=== PATIENT | male | born 1960 | race Caucasian/White ===

== ENCOUNTER 2017-06-02 16:15 | Outpatient (CLI) | payer BC, OTHER | END 2017-06-02 16:16 | LOC: LAB.R 16:15 | PROVIDERS: ATTEND Nurse Practitioner Primary Care | DX: J18.9 Pneumonia, unspecified organism (principal); R05 Cough | CPT/HCPCS: 87275; 87276 ==

== ENCOUNTER 2017-09-16 11:25 | Outpatient (CLI) | payer OTHER ==
[2017-09-16 13:49] LABS: BASOPHILS # (AUTO) 0.1 10^3/uL (0.0-0.1); BASOPHILS % (AUTO) 1.4 %; EOSINOPHILS # (AUTO) 0.3 10^3/uL (0.0-0.7); EOSINOPHILS % (AUTO) 3.6 %; LYMPHOCYTES # (AUTO) 1.8 10^3/uL (1.5-3.5); LYMPHOCYTES % (AUTO) 23.9 %; MEAN CORPUSCULAR HEMOGLOBIN 30.5 pg (27.0-31.0); MEAN PLATELET VOLUME 7.5 fL (7.4-11.4); MONOCYTES # (AUTO) 0.6 10^3/uL (0.0-1.0); MONOCYTES % (AUTO) 7.9 %; NEUTROPHILS # (AUTO) 4.7 10^3/uL (1.5-6.6); NEUTROPHILS % (AUTO) 63.2 %; PLT - PLATELET COUNT 257 10^3/uL (130-450); RED BLOOD COUNT 5.58 10^6/uL (4.70-6.10); WHITE BLOOD COUNT 7.4 x10^3/uL (4.8-10.8)
[2017-09-16 14:06] LABS: ALBUMIN 4.2 g/dL (3.2-5.5); ALBUMIN/GLOBULIN RATIO 1.4 (1.0-2.2); ALKALINE PHOSPHATASE 47 IU/L (42-121); ALT ALANINE AMINOTRANSFERASE 24 IU/L (10-60); AST ASPARTATE AMINOTRANSFERASE 25 IU/L (10-42); BILIRUBIN,TOTAL 2.2 mg/dL (0.2-1.0); BUN - BLOOD UREA NITROGEN 19 mg/dL (6-20); CALCIUM 8.8 mg/dL (8.5-10.3); CARBON DIOXIDE - CO2 23 mmol/L (21-32); CHLORIDE 104 mmol/L (101-111); CREATININE 0.7 mg/dL (0.6-1.2); GFR - MDRD 116 (>89); GLUCOSE 110 mg/dL (70-100); SODIUM 135 mmol/L (135-145); TOTAL PROTEIN 7.3 g/dL (6.7-8.2)
[2017-09-16 14:08] LABS: CRP - C-REACTIVE PROTEIN < 1.0 mg/dL (0-1.0)
[2017-09-16 14:12] LABS: T4 (THYROXINE) 5.61 ug/dL (6.09-12.23)
[2017-09-16 14:15] LABS: THYROID STIMULATING HORMONE 1.75 uIU/mL (0.34-5.60)
[2017-09-16 14:22] LABS: TOTAL T3 1.54 ng/mL (0.87-1.78)
== END 2017-09-16 11:26 | disposition home or self-care (01) ==
LOC: LAB.R 11:25
PROVIDERS: ATTEND Nurse Practitioner Primary Care
DX: M79.1 Myalgia (principal); M25.50 Pain in unspecified joint; G89.29 Other chronic pain; R10.84 Generalized abdominal pain; G60.9 Hereditary and idiopathic neuropathy, unspecified
CPT/HCPCS: 80053; 84436; 84443; 84480; 85025; 85651; 86140

== ENCOUNTER 2017-11-14 20:36 | Emergency (ER) | END 2017-11-14 22:51 | disposition home or self-care (01) | CPT/HCPCS: 73502; 99283; A9270 ==

== ENCOUNTER 2018-12-24 11:15 | Emergency (ER) | payer OTHER ==
--- NOTE | 2018-12-24 11:56 | ED Physician Documentation ---
History of Present Illness - Stated complaint Stated Complaint: SOA/CHEST PX/FATIGUE - Chief complaint Chief Complaint: Cardiac - Additonal information Additional information: This is a 58-year-old male who denies past medical history other than a heart murmur with possible regurgitation of an unspecified valve, who presents with some worsening dyspnea on exertion, as well as now resolved chest discomfort. 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 Last night he had some aching chest discomfort over his central chest which was nonradiating and was also associated with worsening shortness of breath. This resolved, however given that his symptoms have been somewhat progressive he decided to seek care in the emergency department today. Currently is having no chest pain, at rest he does not have shortness of breath but with walking or exertion he does. He denies any history of blood clots, denies leg swelling. He is never been diagnosed with heart failure.He denies fever or cough. Review of Systems Constitutional: denies: Fever Nose: denies: Rhinorrhea / runny nose Cardiac: reports: Chest pain / pressure Respiratory: reports: Dyspnea GI: denies: Abdominal Pain, Vomiting : denies: Dysuria Skin: denies: Rash Immunocompromised: denies: Immunocompromised PD PAST MEDICAL HISTORY - Past Medical History Cardiovascular: Murmur Respiratory: None Neuro: None Endocrine/Autoimmune: None Musculoskeletal: Chronic back pain - Past Surgical History Past Surgical History: No - Present Medications Home Medications: Ambulatory Orders Medication Instructions Recorded Confirmed Codeine Sulfate 1 tab PO PRN PRN 11/14/17 11/14/17 Methocarbamol [Robaxin] 500 mg PO Q6H PRN #25 tablet 11/14/17 Tramadol HCl 50 mg PO Q6H PRN #20 tablet 11/14/17 dexAMETHasone [Decadron] 4 mg PO DAILY #5 tablet 11/14/17 - Allergies Allergies/Adverse Reactions: Allergies Allergy/AdvReac Type Severity Reaction Status Date / Time No Known Drug Allergies Allergy Verified 11/14/17 20:43 - Social History Does the pt smoke?: No Smoking Status: Never smoker Does the pt drink ETOH?: Yes Does the pt have substance abuse?: Yes - Immunizations Immunizations are current?: Yes - POLST Patient has POLST: No PD ED PE NORMAL - Vitals Vital signs reviewed: Yes - General General: Alert and oriented X 3, No acute distress - HEENT HEENT: PERRL - Neck Neck: Supple, no meningeal sign - Cardiac Cardiac: RRR, No murmur - Respiratory Respiratory: Clear bilaterally - Abdomen Abdomen: Soft, Non tender, Non distended - Derm Derm: Warm and dry - Extremities Extremities: No deformity - Neuro Neuro: Alert and oriented X 3 - Psych Psych: Normal mood, Normal affect - Free text exam Free text exam: GENERAL: Awake, alert EYES: Normal sclera HENT/Mouth: Mucus membranes are moist RESP: Lungs sound clear and equal bilaterally CV: Regular rate in 90s and rhythm on my exam; no lower extremity edema GI: Abdomen is soft, rotund, No tenderness to palpation of all quadrants NEURO: Alert, oriented x3; gross movement and sensation intact Results - Vitals Vitals: Oxygen O2 Source Room air - EKG (time done) 11:20 Other comments: Other comments (EKG, my interpretation: Time 11: 20, rate 103, rhythm sinus tachycardia. There is discordant ST depression in the lateral precordial and frontal leads. There is [address] elevation in aVR. No previous EKG for comparison. Intervals within normal limits. Intervals within normal limits) - Labs Labs: Laboratory Tests 12/24/18 12/24/18 12/24/18 11:42 11:42 11:42 WBC 9.1 RBC 5.49 Hgb 17.1 Hct 48.2 MCV 87.8 MCH 31.1 H MCHC 35.5 RDW 11.9 L Plt Count 241 MPV 9.4 Neut # (Auto) 6.3 Lymph # (Auto) 1.7 [place] # (Auto) 0.8 Eos # (Auto) 0.2 Baso # (Auto) 0.1 Absolute Nucleated RBC 0.00 Nucleated RBC % 0.0 Sodium 139 Potassium 3.8 Chloride 105 Carbon Dioxide 22 Anion Gap 12.0 BUN 15 Creatinine 0.8 Estimated GFR (MDRD) 99 Glucose 172 H Calcium 9.1 Total Bilirubin 1.4 H AST 30 ALT 38 Alkaline Phosphatase 53 Troponin I 0.04 B-Natriuretic Peptide Total Protein 6.8 Albumin 4.0 Globulin 2.8 Albumin/Globulin Ratio 1.4 Lipase 25 12/24/18 11:42 WBC RBC Hgb Hct MCV MCH MCHC RDW Plt Count MPV Neut # (Auto) Lymph # (Auto) [place] # (Auto) Eos # (Auto) Baso # (Auto) Absolute Nucleated RBC Nucleated RBC % Sodium Potassium Chloride Carbon Dioxide Anion Gap BUN Creatinine Estimated GFR (MDRD) Glucose Calcium Total Bilirubin AST ALT Alkaline Phosphatase Troponin I B-Natriuretic Peptide 167 H Total Protein Albumin Globulin Albumin/Globulin Ratio Lipase PD MEDICAL DECISION MAKING - ED course Complexity details: considered differential (ACS, pneumonia, pulmonary embolism, dysrhythmia, left ventricular hypertrophy, heart failure, pulmonary edema.) ED course: On initial examination patient is in no acute distress, vital signs are notable hypertension. EKG Shows some discordant ST depression in the lateral leads, which may be secondary to hypertrophy versus ischemia. Patient has no chest pain at this time, however his symptoms with dyspnea on exertion and intermittent chest pain are concerning for ACS. Labs are obtained and troponin is negative. Chest x-ray shows an enlarged cardiac silhouette, otherwise no acute cardiopulmonary abnormality. I discussed with patient that given his risk factors and his history, as well as his EKG changes I would like for him to be admitted for further work-up and a cardiology consult. Patient declined. I discussed with him in depth the risks of heart attack, heart failure, PE, or other missed diagnosis, or . Patient verbalizes understanding and clearly understands that by leaving he is putting himself at risk. He clearly has capacity. He states that he does not like being in hospitals And he did not want to be admitted, had rather follow-up as an outpatient. 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 I also recommended to return to the emergency department at any point for further work-up and admission to the hospital. I recommend that we release to obtain some serial EKGs and another troponin level today, he declined this and any further work-up.Patient left AGAINST MEDICAL ADVICE, again I spoke with him and he understands that I would like for him to be admitted and that he can return to the emergency department anytime Departure - Departure Disposition: ED [place] Clinical Impression: Dyspnea Qualifiers: Dyspnea type: dyspnea on exertion Qualified Code(s): R06.09 - Other forms of dyspnea Condition: Stable Follow-Up: Carlos Esparza MD [Primary Care Provider] - Tomorrow (Return to the ED at any time to complete work up and likely for admission. You need an echocardiogram and further testing.) Comments: You were seen today for shortness of breath and chest pain. I am concerned that this is related to your heart, your EKG is abnormal and your heart appears enlarged. I would like for you to be admitted to the hospital. I am concerned that this is a potentially life-threatening medical issue. Please return to the emergency department at any time for further work-up and admission. If you do n ot wish to return the emergency department, please follow-up with your primary care physician as soon as possible, you will also need to see a pretzel twisting machine operator. Discharge Date/Time: 12/24/18 14:46
[2018-12-24 12:02] LABS: BASOPHILS # (AUTO) 0.1 10^3/uL (0.0-0.1); BASOPHILS % (AUTO) 1.1 %; EOSINOPHILS # (AUTO) 0.2 10^3/uL (0.0-0.7); HGB - HEMOGLOBIN 17.1 g/dL (14.0-18.0); LYMPHOCYTES # (AUTO) 1.7 10^3/uL (1.5-3.5); LYMPHOCYTES % (AUTO) 18.4 %; MEAN CORPUSCULAR HEMOGLOBIN 31.1 pg (27.0-31.0); MEAN CORPUSCULAR HGB CONC 35.5 g/dL (32.0-36.0); MEAN CORPUSCULAR VOLUME 87.8 fL (80.0-94.0); MEAN PLATELET VOLUME 9.4 fL (7.4-11.4); MONOCYTES # (AUTO) 0.8 10^3/uL (0.0-1.0); MONOCYTES % (AUTO) 8.4 %; NEUTROPHILS # (AUTO) 6.3 10^3/uL (1.5-6.6); NEUTROPHILS % (AUTO) 69.5 %; PLT - PLATELET COUNT 241 10^3/uL (130-450); RED BLOOD COUNT 5.49 10^6/uL (4.70-6.10); RED CELL DISTRIBUTION WIDTH 11.9 % (12.0-15.0); WHITE BLOOD COUNT 9.1 x10^3/uL (4.8-10.8)
[2018-12-24 12:08] LABS: ALBUMIN/GLOBULIN RATIO 1.4 (1.0-2.2); BILIRUBIN,TOTAL 1.4 mg/dL (0.2-1.0); CALCIUM 9.1 mg/dL (8.5-10.3); CREATININE 0.8 mg/dL (0.6-1.2); TOTAL PROTEIN 6.8 g/dL (6.7-8.2)
--- NOTE | 2018-12-24 12:08 | XRAY Report ---
Reason: Chest pain Procedure Date: 12/24/2018 Accession Number: [id number] / [id number] Procedure: XR - Chest 1 View X-Ray CPT Code: 98139 FULL RESULT: EXAM: CHEST RADIOGRAPHY EXAM DATE: 12/24/2018 11:50 AM. CLINICAL HISTORY: Chest pain. COMPARISON: None. TECHNIQUE: 1 view. FINDINGS: Lungs/Pleura: No focal opacities evident. No pleural effusion. No pneumothorax. No pulmonary vascular congestion. Mediastinum: There is mild enlargement of the cardiac silhouette. Other: No acute osseous abnormality. There are degenerative changes of the right acromioclavicular joint. IMPRESSION: Mild enlargement of the cardiac silhouette. RADIA
[2018-12-24 13:40] VITALS: BP 137/107
== END 2018-12-24 14:46 | disposition left against medical advice (07) ==
LOC: ED 11:15
DX: R06.09 Other forms of dyspnea (principal); R07.89 Other chest pain; I51.7 Cardiomegaly; R94.31 Abnormal electrocardiogram [ECG] [EKG]; R00.0 Tachycardia, unspecified; Z53.20 Procedure and treatment not carried out because of patient's decision for unspecified reasons
CPT/HCPCS: 36415; 71045; 80053; 83690; 83880; 84484; 85025; 93005; 99283; 99284

== ENCOUNTER 2019-03-22 12:07 | Outpatient (CLI) | payer OTHER | END 2019-03-22 12:08 | disposition EMS.NT | LOC: EMS 12:07 | PROVIDERS: ATTEND Surgery | DX: R11.10 Vomiting, unspecified (principal) ==

== ENCOUNTER 2019-03-28 10:32 | Outpatient (CLI) | payer OTHER ==
--- NOTE | 2019-03-28 11:16 | XRAY Report ---
Reason: COUGH,NONRHEUMATIC AORTIC (VALVE) STENOSIS Procedure Date: 03/28/2019 Accession Number: [id number] / [id number] Procedure: XR - Chest 2 View X-Ray CPT Code: 47169 Final Report FULL RESULT: EXAM: CHEST RADIOGRAPHY EXAM DATE: 03/28/2019 10:54 AM. CLINICAL HISTORY: Cough, nonrheumatic aortic (valve) stenosis. COMPARISON: CHEST 1 VIEW 12/24/2018 11:37 AM. TECHNIQUE: 2 views. FINDINGS: Lungs/Pleura: There is mild bronchial wall thickening in the lower lobe distribution left greater than right, confirmed on lateral radiograph where the appearance is that of airspace opacities. No definite lobar consolidation, overt pulmonary edema, sizable pleural effusion or pneumothorax. 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 Other: None. IMPRESSION: Mild bronchial wall thickening with subtle linear opacities at the left lung base, this may represent early airspace disease. RADIA
== END 2019-03-28 10:33 | disposition home or self-care (01) ==
LOC: DI 10:32
PROVIDERS: ATTEND Nurse Practitioner
DX: R05 Cough (principal); R07.81 Pleurodynia; I35.0 Nonrheumatic aortic (valve) stenosis; Z98.890 Other specified postprocedural states
CPT/HCPCS: 71046

== ENCOUNTER 2019-08-18 15:09 | Emergency (ER) | payer MEDICAID, OTHER ==
[2019-08-18 15:18] VITALS: BP 170/94
--- NOTE | 2019-08-18 15:37 | ED Physician Documentation ---
PD HPI LOWER EXT INJURY - Stated complaint Stated Complaint: BILAT FT PX - Chief complaint Chief Complaint: Ext Problem - History obtained from History obtained from: Patient (58-year-old gentleman has had foot numbness on the lateral sides of both feet for months to years but now up burning dull pain under the fourth and fifth metatarsals on both sides especially the left for the last few months that was worse after soaking his feet today. He denies being diabetic but has been lost to primary care follow-up. He also notes a gum infection for the last several days on the lower teeth.) Review of Systems Constitutional: denies: Fever, Chills Nose: denies: Rhinorrhea / runny nose, Congestion Throat: denies: Sore throat Cardiac: denies: Chest pain / pressure, Palpitations GI: denies: Abdominal Pain (Mild numbness of both feet,), Nausea, Vomiting : denies: Dysuria, Frequency PD PAST MEDICAL HISTORY - Past Medical History Cardiovascular: Murmur Respiratory: None Neuro: None Endocrine/Autoimmune: None Musculoskeletal: Chronic back pain - Past Surgical History Past Surgical History: No Ortho: Carpal Tunnel surgery - Present Medications Home Medications: Ambulatory Orders Medication Instructions Recorded Confirmed Codeine Sulfate 1 tab PO PRN PRN 11/14/17 11/14/17 Tramadol HCl 50 mg PO Q6H PRN #20 tablet 11/14/17 dexAMETHasone [Decadron] 4 mg PO DAILY #5 tablet 11/14/17 methocarbamoL [Robaxin] 500 mg PO Q6H PRN #25 tablet 11/14/17 Amox/Clav 875/125 [Augmentin] 1 each PO Q12H #14 tablet 08/18/19 Chlorhexidine Gluconate [Peridex] 15 ml MM TID #1 bot 08/18/19 Gabapentin [Neurontin] 300 mg PO TID #60 capsule 08/18/19 - Allergies Allergies/Adverse Reactions: Allergies Allergy/AdvReac Type Severity Reaction Status Date / Time No Known Drug Allergies Allergy Verified 11/14/17 20:43 - Social History Does the pt smoke?: No Smoking Status: Never smoker Does the pt drink ETOH?: Yes Does the pt have substance abuse?: Yes - Immunizations Immunizations are current?: Yes - POLST Patient has POLST: No PD ED PE NORMAL - Vitals Vital signs reviewed: Yes - General General: Alert and oriented X 3, No acute distress - HEENT HEENT: Other (Gingivitis especially of the lower teeth on the left, he is pretty much edentulous on the right jaw.) - Neck Neck: Supple, no meningeal sign, No bony TTP - Extremities Extremities: Other (Mild numbness of both feet laterally, good pedal pulses. No evidence of infection. Normal cap refill. No tenderness. No limited range of motion.) - Neuro Neuro: Alert and oriented X 3, Normal speech Results - Vitals Vitals: Vital Signs - 24 hr 08/18/19 15:16 Temperature 36.4 C L Heart Rate 111 H Respiratory 16 Rate Blood Pressure 170/94 H O2 Saturation 97 Oxygen O2 Source Room air - Labs Labs: Laboratory Tests 08/18/19 15:35 POC Whole Bld Glucose 140 H PD MEDICAL DECISION MAKING - ED course ED course: 58-year-old gentleman with multiple complaints, a gum infection and what seems to be some neuropathy of the feet. He is started on antibiotics and gabapentin, discussed at length the importance of both PCP and dental follow-up. Departure - Departure Disposition: 01 Home, Self Care Clinical Impression: Gingivitis, Borderline diabetes, Neuropathy Condition: Good Record reviewed to determine appropriate education?: Yes Instructions: Gingivitis, ED Neuropathy Peripheral, ED Hyperglycemia New Susp Diabetes Follow-Up: Mary Viveros MD [Provider Admit Priv/Credential] - [facility] [Provider Group] Prescriptions: Amox/Clav 875/125 [Augmentin] 1 each PO Q12H #14 tablet Chlorhexidine Gluconate [Peridex] 15 ml MM TID #1 bot Gabapentin [Neurontin] 300 mg PO TID #60 capsule Comments: It is imperative to follow-up with primary care physician as well as a dentist for further evaluation and treatment. Return for new or worsening symptoms. Your blood sugar today is 140 which is not diagnostic of diabetes but is a little high and needs to be monitored by your primary care doctor. Your blood pressure was elevated today on check into the emergency department. This does not mean that you have hypertension, it is a common phenomenon to come to the emergency department and have elevated blood pressure. I recommend that you see your primary care physician within the week to have it rechecked when you are feeling better. Discharge Date/Time: 08/18/19 15:51
== END 2019-08-18 15:51 | disposition home or self-care (01) ==
LOC: ED 15:09
DX: K05.10 Chronic gingivitis, plaque induced (principal); R73.03 Prediabetes; G62.9 Polyneuropathy, unspecified
CPT/HCPCS: 99283; 99284

== ENCOUNTER 2020-03-29 08:20 | Emergency (ER) | payer MEDICAID ==
[2020-03-29 08:38] VITALS: BP 138/81
--- NOTE | 2020-03-29 08:53 | ED Physician Documentation ---
PD HPI CHEST PAIN - Stated complaint Stated Complaint: LUMPS IN CHEST, LEFT HAND PX - Chief complaint Chief Complaint: General - History obtained from History obtained from: Patient - History of Present Illness Timing - onset: How many months ago (1-2) Timing - onset during: No: Light activity Timing - duration: Weeks (1-2 weeks of worsening tenderness) Timing - details: Gradual onset, Waxing and waning (has noted some feeling of lump or firmness below both nipples that has varied in size from 1 cm up to 2-3 cm, with now several days of increased size both sides and some feeling of numbness at times in left hand. No edema in the hands. No dyspnea.) Quality: Aching, Pain Location: Other (bilateral nipples/breasts.) Improved by: Rest Worsened by: Movement, Palpation. No: Inspiration Associated symptoms: General Weakness. No: Shortness of air, Nausea, Vomiting, Feeling faint / dizzy, Palpitations, Cough Similar symptoms before: Has not had sx before Recently seen: Not recently seen Review of Systems Constitutional: reports: Other (denies any daily meds, not even OTC supplements. Denies any testosterone like supplements.). denies: Fever, Chills, Myalgias Nose: denies: Rhinorrhea / runny nose, Congestion Throat: denies: Sore throat Cardiac: reports: Chest pain / pressure. denies: Palpitations, Pedal edema, Calf pain Respiratory: reports: Dyspnea. denies: Cough GI: denies: Abdominal Pain, Nausea, Vomiting : denies: Dysuria, Frequency Skin: denies: Rash, Lesions Musculoskeletal: denies: Neck pain, Back pain Neurologic: denies: Generalized weakness, Focal weakness, Numbness Endocrine: denies: Swollen lymph nodes PD PAST MEDICAL HISTORY - Past Medical History Cardiovascular: Murmur Respiratory: None Neuro: None Endocrine/Autoimmune: None Musculoskeletal: Chronic back pain - Past Surgical History Past Surgical History: No Ortho: Carpal Tunnel surgery - Allergies Allergies/Adverse Reactions: Allergies Allergy/AdvReac Type Severity Reaction Status Date / Time No Known Drug Allergies Allergy Verified 03/29/20 08:37 - Social History Does the pt smoke?: No Smoking Status: Never smoker Does the pt drink ETOH?: Yes Does the pt have substance abuse?: Yes - Immunizations Immunizations are current?: Yes - POLST Patient has POLST: No PD ED PE NORMAL - Vitals Vital signs reviewed: Yes - General General: Alert and oriented X 3, No acute distress, Well developed/nourished - HEENT HEENT: Ears normal, Moist mucous membranes, Pharynx benign - Neck Neck: Supple, no meningeal sign, No adenopathy - Cardiac Cardiac: RRR, No murmur, No rub, Strong equal pulses - Respiratory Respiratory: No respiratory distress, Clear bilaterally, Other (both areolar area below nipples with some rounded firmness and tenderness c/w breat tissue. No skin redness nor rash. NO axillary nodes. ) - Abdomen Abdomen: Soft, Non tender Results - Vitals Vitals: Vital Signs - 24 hr 03/29/20 08:32 Temperature 36.6 C Heart Rate 102 H Respiratory 18 Rate Blood Pressure 138/81 H O2 Saturation 97 Oxygen O2 Source Room air - Labs Labs: Laboratory Tests 03/29/20 03/29/20 03/29/20 09:46 09:46 09:46 WBC 5.6 RBC 5.17 Hgb 15.7 Hct 45.6 MCV 88.2 MCH 30.4 MCHC 34.4 RDW 11.9 L Plt Count 227 MPV 8.8 Neut # (Auto) 3.5 Lymph # (Auto) 1.3 L [place] # (Auto) 0.5 Eos # (Auto) 0.3 Baso # (Auto) 0.1 Absolute Nucleated RBC 0.00 Nucleated RBC % 0.0 ESR Sodium 138 Potassium 3.5 Chloride 104 Carbon Dioxide 23 Anion Gap 11.0 BUN 15 Creatinine 1.0 Estimated GFR (MDRD) 76 L Glucose 184 H Calcium 8.5 Total Bilirubin 1.2 H AST 25 ALT 28 Alkaline Phosphatase 60 Total Protein 6.5 L Albumin 3.4 Globulin 3.1 Albumin/Globulin Ratio 1.1 TSH 1.95 Prolactin 7.60 Cortisol 6.0 03/29/20 09:46 WBC RBC Hgb Hct MCV MCH MCHC RDW Plt Count MPV Neut # (Auto) Lymph # (Auto) [place] # (Auto) Eos # (Auto) Baso # (Auto) Absolute Nucleated RBC Nucleated RBC % ESR 4 Sodium Potassium Chloride Carbon Dioxide Anion Gap BUN Creatinine Estimated GFR (MDRD) Glucose Calcium Total Bilirubin AST ALT Alkaline Phosphatase Total Protein Albumin Globulin Albumin/Globulin Ratio TSH Prolactin Cortisol PD MEDICAL DECISION MAKING - ED course Complexity details: reviewed results, re-evaluated patient, considered differential (bilateral breast tissue pain/tender. Can check hormone levels, lytes, an blood sugar. ), d/w patient Departure - Departure Disposition: 01 Home, Self Care Clinical Impression: Breast lump, Intermittent lightheadedness Condition: Stable Record reviewed to determine appropriate education?: Yes Follow-Up: [facility] [Provider Group] Comments: Your basic blood tests appear normal here. Some of the other more specific hormonal tests such as thyroid and cortisol and prolactin are yet to result and will be later today or tomorrow. These can be referenced through the patient portal and you can look up the labs. Otherwise contact your primary care for a follow-up appointment on the labs and symptoms, as they sound likely to be an endocrine/hormonal issue. With them discussed the idea of a "Holter monitor" or some version of a heart rhythm assessment over a few weeks to see if some of the lightheaded episodes correlate with abnormal rhythm. Discharge Date/Time: 03/29/20 10:42
[2020-03-29 09:53] LABS: BASOPHILS # (AUTO) 0.1 10^3/uL (0.0-0.1); BASOPHILS % (AUTO) 1.4 %; EOSINOPHILS # (AUTO) 0.3 10^3/uL (0.0-0.7); EOSINOPHILS % (AUTO) 4.6 %; HGB - HEMOGLOBIN 15.7 g/dL (14.0-18.0); LYMPHOCYTES # (AUTO) 1.3 10^3/uL (1.5-3.5); LYMPHOCYTES % (AUTO) 22.6 %; MEAN CORPUSCULAR HEMOGLOBIN 30.4 pg (27.0-31.0); MEAN CORPUSCULAR HGB CONC 34.4 g/dL (32.0-36.0); MEAN CORPUSCULAR VOLUME 88.2 fL (80.0-94.0); MEAN PLATELET VOLUME 8.8 fL (7.4-11.4); MONOCYTES # (AUTO) 0.5 10^3/uL (0.0-1.0); MONOCYTES % (AUTO) 9.4 %; NEUTROPHILS # (AUTO) 3.5 10^3/uL (1.5-6.6); NEUTROPHILS % (AUTO) 61.8 %; PLT - PLATELET COUNT 227 10^3/uL (130-450); RED BLOOD COUNT 5.17 10^6/uL (4.70-6.10); RED CELL DISTRIBUTION WIDTH 11.9 % (12.0-15.0); WHITE BLOOD COUNT 5.6 x10^3/uL (4.8-10.8)
[2020-03-29 10:04] LABS: ALBUMIN 3.4 g/dL (3.2-5.5); ALBUMIN/GLOBULIN RATIO 1.1 (1.0-2.2); BILIRUBIN,TOTAL 1.2 mg/dL (0.2-1.0); CALCIUM 8.5 mg/dL (8.5-10.3); TOTAL PROTEIN 6.5 g/dL (6.7-8.2)
[2020-03-29 10:21] LABS: THYROID STIMULATING HORMONE 1.95 uIU/mL (0.34-5.60)
[2020-03-29 10:26] LABS: PROLACTIN 7.6 ng/mL
[2020-04-03 16:31] LABS: ALBUMIN 3.5 g/dL (3.6-5.1)
== END 2020-03-29 10:42 | disposition home or self-care (01) ==
LOC: ED 08:20
DX: N63.41 Unspecified lump in right breast, subareolar (principal); N63.42 Unspecified lump in left breast, subareolar; R42 Dizziness and giddiness; I35.0 Nonrheumatic aortic (valve) stenosis
CPT/HCPCS: 36415; 80050; 82040; 82533; 84146; 84270; 84403; 85651; 93306; 99283; 99284

== ENCOUNTER 2020-03-29 10:50 | Outpatient (CLI) | payer MEDICAID | END 2020-03-29 10:51 | disposition home or self-care (01) | LOC: DI 10:50 | PROVIDERS: ATTEND Family Medicine | DX: I35.0 Nonrheumatic aortic (valve) stenosis (principal) | CPT/HCPCS: 93306 ==

== ENCOUNTER 2020-12-06 04:21 | Emergency (ER) | payer MEDICAID ==
[2020-12-06] MEDS ORDERED: KETOROLAC 15 MG/ML VIAL IVP STA (05:03)
[2020-12-06] MEDS ORDERED: ONDANSETRON 4 MG/2 ML VIAL IVP STA (05:03)
[2020-12-06] MEDS ORDERED: HYDROmorphone 1 MG/ML CARPUJECT IVP STA (05:04)
[2020-12-06] MEDS ORDERED: HYDROmorphone 1 MG/ML CARPUJECT ONE (05:12)
[2020-12-06] MEDS ORDERED: KETOROLAC 30 MG/ML VIAL ONE (05:12)
[2020-12-06] MEDS ORDERED: ONDANSETRON 4 MG/2 ML VIAL ONE (05:12)
[2020-12-06 05:22] LABS: BASOPHILS # (AUTO) 0.1 10^3/uL (0.0-0.1); BASOPHILS % (AUTO) 1.5 %; EOSINOPHILS # (AUTO) 0.2 10^3/uL (0.0-0.7); EOSINOPHILS % (AUTO) 2.5 %; HGB - HEMOGLOBIN 16.9 g/dL (14.0-18.0); LYMPHOCYTES % (AUTO) 20.5 %; MEAN CORPUSCULAR HEMOGLOBIN 30.9 pg (27.0-31.0); MEAN CORPUSCULAR HGB CONC 34.5 g/dL (32.0-36.0); MEAN CORPUSCULAR VOLUME 89.6 fL (80.0-94.0); MEAN PLATELET VOLUME 8.7 fL (7.4-11.4); MONOCYTES % (AUTO) 10.5 %; NEUTROPHILS # (AUTO) 6.1 10^3/uL (1.5-6.6); NEUTROPHILS % (AUTO) 64.6 %; PLT - PLATELET COUNT 273 10^3/uL (130-450); RED BLOOD COUNT 5.47 10^6/uL (4.70-6.10); RED CELL DISTRIBUTION WIDTH 12.4 % (12.0-15.0); WHITE BLOOD COUNT 9.5 x10^3/uL (4.8-10.8)
[2020-12-06] MEDS ORDERED: IOVERSOL 320 100 ML VIAL IVP ONE ×2 (05:23→06:07)
[2020-12-06 05:31] LABS: ALBUMIN 4.3 g/dL (3.2-5.5); ALBUMIN/GLOBULIN RATIO 1.3 (1.0-2.2); BILIRUBIN,TOTAL 2.1 mg/dL (0.2-1.0); CALCIUM 9.2 mg/dL (8.5-10.3); CREATININE 1.4 mg/dL (0.6-1.2); TOTAL PROTEIN 7.7 g/dL (6.7-8.2)
--- NOTE | 2020-12-06 06:51 | ED Physician Documentation ---
PD HPI ABD PAIN - Stated complaint Stated Complaint: LOW ABD PX - Chief complaint Chief Complaint: Abd Pain - History obtained from History obtained from: Patient - History of Present Illness Timing - onset: How many days ago (4) Timing - details: Abrupt onset, Intermittant, Waxing and waning Pain level now: 8 Quality: Pain Location: RLQ Radiation: Other (right groin) Improved by: Other (nothing) Worsened by: Other (no exacerbating factors) Associated symptoms: No: Fever, Nausea, Vomiting, Diarrhea, Constipation, Dysuria Similar symptoms before: Has not had sx before Recently seen: Not recently seen - Additional information Additional information: patient c/o episodic RLQ pain radiating to right groin, initial episode 4 days ago but resolved spontaneously. He has subsequently had episodes that have had no apparent inciting, exacerbating, or ameliorating factors with spontaneous resolution until this most recent episode which occurred several hours ago while in bed asleep; this episode is the most severe and it has not improved since onset. Review of Systems Constitutional: denies: Fever, Chills, Sweats Cardiac: reports: Reviewed and negative Respiratory: reports: Reviewed and negative GI: reports: Abdominal Pain. denies: Abdominal Swelling, Nausea, Vomiting, Constipation, Diarrhea : denies: Dysuria, Frequency, Hematuria Musculoskeletal: reports: Reviewed and negative PD PAST MEDICAL HISTORY - Past Medical History Cardiovascular: Murmur Respiratory: None Neuro: None Endocrine/Autoimmune: None Musculoskeletal: Chronic back pain - Past Surgical History Past Surgical History: No Ortho: Carpal Tunnel surgery - Present Medications Home Medications: Ambulatory Orders Medication Instructions Recorded Confirmed No Known Home Medications 12/06/20 12/06/20 - Allergies Allergies/Adverse Reactions: Allergies Allergy/AdvReac Type Severity Reaction Status Date / Time No Known Drug Allergies Allergy Verified 12/06/20 04:29 - Social History Does the pt smoke?: No Smoking Status: Never smoker Does the pt drink ETOH?: Yes Does the pt have substance abuse?: Yes - Immunizations Immunizations are current?: Yes - POLST Patient has POLST: No PD ED PE NORMAL - Vitals Vital signs reviewed: Yes - General General: Alert and oriented X 3, Well developed/nourished, Other (appears to be in painful distress) - Cardiac Cardiac: RRR, No murmur - Respiratory Respiratory: No respiratory distress, Clear bilaterally - Abdomen Abdomen: Normal bowel sounds, Soft, Non tender, Non distended - Derm Derm: Normal color, Warm and dry PD ED PE EXPANDED - Male Male : Tenderness (right testicular/hemiscrotal tenderness), Other (negative right cremasteric reflex). No: Normal lie/cremastaric Results - Vitals Vitals: Oxygen O2 Source Room air - Labs Labs: Laboratory Tests 12/06/20 12/06/20 12/06/20 04:45 04:45 04:45 WBC 9.5 RBC 5.47 Hgb 16.9 Hct 49.0 MCV 89.6 MCH 30.9 MCHC 34.5 RDW 12.4 Plt Count 273 MPV 8.7 Neut # (Auto) 6.1 Lymph # (Auto) 2.0 Nelson # (Auto) 1.0 Eos # (Auto) 0.2 Baso # (Auto) 0.1 Absolute Nucleated RBC 0.00 Nucleated RBC % 0.0 Sodium 139 Potassium 4.0 Chloride 100 L Carbon Dioxide 26 Anion Gap 13.0 BUN 31 H Creatinine 1.4 H Estimated GFR (MDRD) 52 L Glucose 165 H Calcium 9.2 Total Bilirubin 2.1 H AST 31 ALT 37 Alkaline Phosphatase 60 Total Protein 7.7 Albumin 4.3 Globulin 3.4 Albumin/Globulin Ratio 1.3 Lipase 28 Urine Color Cancelled Urine Clarity Cancelled Urine pH Cancelled Ur Specific [place] Cancelled Urine Protein Cancelled Urine Glucose (UA) Cancelled Urine Ketones Cancelled Urine Occult Blood Cancelled Urine Nitrite Cancelled Urine Bilirubin Cancelled Urine Urobilinogen Cancelled Ur Leukocyte Esterase Cancelled Ur Microscopic Review Cancelled Urine Culture Comments Cancelled - Rads (name of study) CT A/P with IV contrast Radiology: Prelim report reviewed, See rad report testicular US Radiology: Prelim report reviewed, See rad report PD MEDICAL DECISION MAKING - ED course Complexity details: reviewed results, re-evaluated patient, considered differential, d/w patient ED course: patient reported adequate pain relief after IV dilaudid. CT does not have findings that would explain his symptoms (incidental note of fatty liver, diverticulosis, renal cyst). Testicular US is interpreted by radiologist as: normal sonographic appearance of both testes. exquisitely tender cordlike structure posterior and lateral to the right testicle and extending into the inguinal canal. There is minimal blood flow within this structure. Differential possibilities include a partially torsed spermatic cord versus an incarcerated inguinal hernia." Normal color flow is noted to both testes. I discussed this case with Dr. Gallagher, electronic engineering draftsperson urology at [facility]. He opines that the presence of normal color flow to both testes suggests there is no torsion of the spermatic cord (as this would also occlude blood flow to the testicle). Dr. Gallagher recommends [facility] surgeon for this case and he opines that patient does not need to nor would benefit from transfer to urology service. D/W Dr. Alanis, accepts patient to [facility]. I then updated patient with this information and he unexpectedly and suddenly demands to be discharged. He refuses to provide me with a reason so I am unable to ascertain what concerns he has that I might try to assuage. Departure - Departure Disposition: Against Medical Advice Clinical Impression: Incarcerated hernia Condition: Stable Discharge Date/Time: 12/06/20 07:57
[2020-12-06 09:05] VITALS: BP 123/85
--- NOTE | 2020-12-06 10:45 | Ultrasound Report ---
PROCEDURE: Testicle w/Doppler INDICATIONS: RIGHT TESTICULAR PAIN TECHNIQUE: Real-time scanning was performed of the scrotum and testicles, with image documentation. Color and p ulse Doppler interrogation was performed of both testicles. COMPARISON: None. FINDINGS: Right: Testicle is normal in size at 3.6 x 2.6 x 2.8 cm, and homogenous in echotexture. Epididymis is normal in overall size and morphology. No hydrocele or varicoceles. Within the right scrotal sac, there is a cordlike structure extending to the inguinal canal and a small amount of internal blood f low. This correlates to area of point tenderness. Left: Testicle is normal in size at 4.3 x 2.2 x 2.9 cm, and homogeneous in echotexture. Epididymis is normal in overall size and morphology. No hydrocele or varicoceles. Overlying scrotal skin is no rmal in thickness. Doppler: Color and pulse Doppler demonstrate normal and symmetric arterial flow in both testicles. IMPRESSION: 1. Cordlike structure in the right testicle extending to the inguinal canal with minimal blood flow. Differential diagnosis includes partially torsed spermatic cord or incarcerated inguinal hernia. CT p albina is recommended for further evaluation. The above findings are concordant with preliminary report. Reviewed by: Tania Childress MD on 12/06/2020 10:43 AM PDT Approved by: Tania Childress MD on 12/06/2020 10:43 AM PDT Station ID: [id number]
--- NOTE | 2020-12-06 15:15 | CT Report ---
PROCEDURE: Abdomen/Pelvis W INDICATIONS: RLQ PAIN CONTRAST: IV CONTRAST: Optiray 320 ml: 100 PO CONTRAST: *NO PO CONTRAST TECHNIQUE: After the administration of oral contrast, 5 mm thick sections acquired from the diaphragms to the sy mphysis. 5 mm thick coronal and sagittal reformats were acquired. For radiation dose reduction, the following was used: automated exposure control, adjustment of mA and/or kV according to patient siz e. COMPARISON: None. FINDINGS: Image quality: Excellent. ABDOMEN: Lung bases: Lung bases are clear. Heart size is normal. Solid organs: Liver and spleen are normal in size and enhancement. Steatosis is present. Gallbladder is unremarkable Biliary system is non dilated. Pancreas enhances normally. No adrenal nodules. K idneys demonstrate normal size and enhancement, without hydronephrosis. Simple right renal cyst is p resent. Peritoneum and bowel: Bowel loops demonstrate normal wall thickness and caliber. Colonic diverticula are present without inflammatory change. No free fluid or air. Nodes and vessels: No retroperitoneal or mesenteric adenopathy by size criteria. Aorta and inferior vena cava are normal in size. Miscellaneous: No ventral hernias. PELVIS: Genitourinary: Bladder wall thickness is normal. Miscellaneous: Fat-containing inguinal hernias are noted. Bones: No suspicious bony lesions. No vertebral body compression fractures. IMPRESSION: 1. No acute intra-abdominal pelvic process. 2. Diverticulosis. The above findings are concordant with preliminary report. Reviewed by: Tania Childress MD on 12/06/2020 3:14 PM PDT Approved by: Tania Childress MD on 12/06/2020 3:14 PM PDT Station ID: [id number]
== END 2020-12-06 07:57 | disposition left against medical advice (07) ==
LOC: ED 04:21
DX: K46.0 Unspecified abdominal hernia with obstruction, without gangrene (principal)
CPT/HCPCS: 36415; 74177; 76870; 80053; 83690; 85025; 93975; 96374; 96375; 99284; J1170; Q9967; 81001; 81003; 87086

== ENCOUNTER 2021-11-19 18:13 | Emergency (ER) | payer MEDICAID ==
[2021-11-19 18:20] VITALS: BP 132/94
--- NOTE | 2021-11-19 18:44 | ED Physician Documentation ---
PD HPI HEENT - Stated complaint Stated Complaint: EAR PX - Chief complaint Chief Complaint: Heent - History obtained from History obtained from: Patient - Additional information Additional information: 1 week of left worse than right ear fullness with decreased hearing Review of Systems Constitutional: denies: Fever, Chills Nose: denies: Rhinorrhea / runny nose Throat: denies: Sore throat PD PAST MEDICAL HISTORY - Past Medical History Cardiovascular: Murmur, Valve disorder Respiratory: None Neuro: None Endocrine/Autoimmune: None GI: None : None HEENT: None Musculoskeletal: Chronic back pain Derm: None - Past Surgical History Past Surgical History: No Ortho: Carpal Tunnel surgery Cardiovascular: Valve replacement - Present Medications Home Medications: Ambulatory Orders Medication Instructions Recorded Confirmed No Known Home Medications 12/06/20 11/19/21 - Allergies Allergies/Adverse Reactions: Allergies Allergy/AdvReac Type Severity Reaction Status Date / Time No Known Drug Allergies Allergy Verified 11/19/21 18:16 - Social History Does the pt smoke?: No Smoking Status: Former smoker Does the pt drink ETOH?: Yes Does the pt have substance abuse?: Yes - Immunizations Immunizations are current?: Yes - POLST Patient has POLST: No PD ED PE NORMAL - Vitals Vital signs reviewed: Yes - General General: Alert and oriented X 3 - HEENT HEENT: Other (Bilateral cerumen impaction. After irrigation TMs were normal) - Neuro Neuro: Alert and oriented X 3, Normal speech Results - Vitals Vitals: Vital Signs - 24 hr 11/19/21 18:18 Temperature 36.8 C Heart Rate 116 H Respiratory 18 Rate Blood Pressure 132/94 H O2 Saturation 96 Oxygen O2 Source Room air Procedures - General procedure General procedure: Both ear canals cleared of cerumen with syringe irrigation and resolution of symptoms. Departure - Departure Disposition: 01 Home, Self Care Clinical Impression: Impacted cerumen of both ears Condition: Good Record reviewed to determine appropriate education?: Yes Instructions: Earwax Impacted
== END 2021-11-19 18:52 | disposition home or self-care (01) ==
LOC: ED 18:13
DX: H61.23 Impacted cerumen, bilateral (principal); Z87.891 Personal history of nicotine dependence
CPT/HCPCS: 99281; 99282

== ENCOUNTER 2021-12-05 08:19 | Emergency (ER) | payer MEDICAID ==
[2021-12-05 08:30] VITALS: BP 143/100
--- NOTE | 2021-12-05 08:45 | ED Physician Documentation ---
PD HPI HEENT - Stated complaint Stated Complaint: DOESN'T FEEL WELL - Chief complaint Chief Complaint: General - History obtained from History obtained from: Patient - History of Present Illness Timing - onset: How many months ago (2-3) Timing - duration: Months Timing - details: Gradual onset, Waxing and waning Location: Left ear, Sinuses, Other (Currently with left ear pain and left frontal and maxillary sinus pressure for several days to a week. However has had several months of general fatigue, weight loss, blurred vision and feeling "unwell".) Worsens: Position (sinuses feel worse bending over.) Associated symptoms: Congestion. No: Fever Similar symptoms before: Diagnosis (has had cerumen impaction in the past. Also some sinusitis in the past.) Recently seen: Not recently seen Review of Systems Constitutional: denies: Fever, Chills Nose: reports: Congestion, Sinus pressure / pain. denies: Rhinorrhea / runny nose Throat: denies: Sore throat Respiratory: denies: Cough GI: reports: Other (poor appetite.). denies: Abdominal Pain, Vomiting, Diarrhea : denies: Dysuria Neurologic: reports: Generalized weakness. denies: Focal weakness, Numbness, Near syncope, Altered mental status PD PAST MEDICAL HISTORY - Past Medical History Cardiovascular: Murmur, Valve disorder Respiratory: None Neuro: None Endocrine/Autoimmune: None (states history of borderline diabetes. ) GI: None : None HEENT: None Musculoskeletal: Chronic back pain Derm: None - Past Surgical History Past Surgical History: No Ortho: Carpal Tunnel surgery Cardiovascular: Valve replacement - Present Medications Home Medications: Ambulatory Orders Medication Instructions Recorded Confirmed Amoxicillin 500 mg PO TID #21 cap 12/05/21 metFORMIN [Glucophage] 500 mg PO BIDWM 30 Days #60 tablet 12/05/21 - Allergies Allergies/Adverse Reactions: Allergies Allergy/AdvReac Type Severity Reaction Status Date / Time No Known Drug Allergies Allergy Verified 11/19/21 18:16 - Social History Does the pt smoke?: No Smoking Status: Former smoker Does the pt drink ETOH?: Yes Does the pt have substance abuse?: Yes - Immunizations Immunizations are current?: Yes - POLST Patient has POLST: No PD ED PE NORMAL - Vitals Vital signs reviewed: Yes - General General: Alert and oriented X 3, Well developed/nourished - HEENT HEENT: Ears normal, Pharynx benign, Other (sinus tenderness to percussion left frontal and maxillary. ) - Neck Neck: Supple, no meningeal sign, No adenopathy - Cardiac Cardiac: RRR, No murmur - Respiratory Respiratory: Clear bilaterally - Abdomen Abdomen: Soft, Non tender - Derm Derm: Normal color, Warm and dry - Extremities Extremities: No edema, No calf tenderness / cord - Neuro Neuro: Alert and oriented X 3, No motor deficit, No sensory deficit, Normal speech Results - Vitals Vitals: Vital Signs - 24 hr 12/05/21 08:29 Temperature 37.4 C Heart Rate 117 H Respiratory 20 Rate Blood Pressure 143/100 H O2 Saturation 98 Oxygen O2 Source Room air - Labs Labs: Laboratory Tests 12/05/21 12/05/21 12/05/21 09:07 09:07 09:07 WBC 7.8 RBC 6.00 Hgb 18.2 H Hct 50.0 MCV 83.3 MCH 30.3 MCHC 36.4 H RDW 11.7 L Plt Count 245 MPV 9.3 Neut # (Auto) 5.4 Lymph # (Auto) 1.5 [place] # (Auto) 0.6 Eos # (Auto) 0.1 Baso # (Auto) 0.1 Absolute Nucleated RBC 0.00 Nucleated RBC % 0.0 VBG pH VBG pCO2 VBG pO2 VBG HCO3 VBG Total CO2 VBG O2 Saturation VBG Base Excess Sodium 129 L Potassium 4.5 Chloride 94 L Carbon Dioxide 22 Anion Gap 13.0 BUN 17 Creatinine 1.1 Estimated GFR (MDRD) 68 L Glucose 601 H* Estimat Average Glucose Hemoglobin A1c % Calcium 9.0 Magnesium 1.9 Total Bilirubin 1.6 H AST 26 ALT 40 Alkaline Phosphatase 60 C-Reactive Protein < 1.0 Total Protein 6.8 Albumin 3.7 Globulin 3.1 Albumin/Globulin Ratio 1.2 Lipase 38 TSH 2.47 Serum Ketones 12/05/21 12/05/21 12/05/21 10:08 10:08 10:08 WBC RBC Hgb Hct MCV MCH MCHC RDW Plt Count MPV Neut # (Auto) Lymph # (Auto) [place] # (Auto) Eos # (Auto) Baso # (Auto) Absolute Nucleated RBC Nucleated RBC % VBG pH 7.379 VBG pCO2 46.1 VBG pO2 21.2 L VBG HCO3 26.6 VBG Total CO2 28.0 VBG O2 Saturation 43.0 L VBG Base Excess 0.8 Sodium Potassium Chloride Carbon Dioxide Anion Gap BUN Creatinine Estimated GFR (MDRD) Glucose Estimat Average Glucose 367 H Hemoglobin A1c % 14.4 H Calcium Magnesium Total Bilirubin AST ALT Alkaline Phosphatase C-Reactive Protein Total Protein Albumin Globulin Albumin/Globulin Ratio Lipase TSH Serum Ketones NEGATIVE PD MEDICAL DECISION MAKING - ED course Complexity details: reviewed results (The patient has an elevated blood sugar at 601. We did add on ketones in the blood gas and there is no signs of acidosis nor ketosis. Appropriate for outpatient treatment and follow-up.), re-evaluated patient, considered differential (The patient with general weakness and not feeling well and stated weight loss over the last few weeks. We will check general chemistry panels etc.), d/w patient ED course: The patient was getting IV fluids to help lower sugar while we were assessing further blood test. He understood likely outpatient treatment. Apparently his mother arrived and there was some issues of their arguing and he said he had to leave right away. The nursing staff got from him that he would use the [facility] pharmacy. He was told that we would send prescriptions to the pharmacy for him for his diabetes and also apparent sinus infection will be treated with amox icillin. I had discussed this with him as the likely treatment prior to his leaving somewhat prematurely. We were not able to recheck his blood sugar prior to leaving but is stimulated is a bit lower and has been doing okay essentially with it for now. He will need to start outpatient oral treatment initially and likely will need some long-acting insulin as well but I defer to his primary care for that. Departure - Departure Disposition: ED [place] Clinical Impression: Generalized weakness, Diabetes mellitus, new onset Sinusitis Qualifiers: Sinusitis location: unspecified location Chronicity: acute Recurrence: non- recurrent Qualified Code(s): J01.90 - Acute sinusitis, unspecified Condition: Stable Record reviewed to determine appropriate education?: Yes Instructions: ED Diabetes Hypoglycemia Oral Agent Follow-Up: [facility] [Provider Group] Prescriptions: Amoxicillin 500 mg PO TID #21 cap metFORMIN [Glucophage] 500 mg PO BIDWM 30 Days #60 tablet Comments: You will want to follow up with [facility] next week for ER followup and to have sugar recheckeed. To see if meds need adjusting and possible adding of daily long acting insulin. Discharge Date/Time: 12/05/21 11:44
[2021-12-05 09:15] LABS: BASOPHILS # (AUTO) 0.1 10^3/uL (0.0-0.1); EOSINOPHILS # (AUTO) 0.1 10^3/uL (0.0-0.7); EOSINOPHILS % (AUTO) 1.3 %; HGB - HEMOGLOBIN 18.2 g/dL (14.0-18.0); LYMPHOCYTES # (AUTO) 1.5 10^3/uL (1.5-3.5); LYMPHOCYTES % (AUTO) 19.6 %; MEAN CORPUSCULAR HEMOGLOBIN 30.3 pg (27.0-31.0); MEAN CORPUSCULAR HGB CONC 36.4 g/dL (32.0-36.0); MEAN CORPUSCULAR VOLUME 83.3 fL (80.0-94.0); MEAN PLATELET VOLUME 9.3 fL (7.4-11.4); MONOCYTES # (AUTO) 0.6 10^3/uL (0.0-1.0); NEUTROPHILS # (AUTO) 5.4 10^3/uL (1.5-6.6); NEUTROPHILS % (AUTO) 69.7 %; PLT - PLATELET COUNT 245 10^3/uL (130-450); RED CELL DISTRIBUTION WIDTH 11.7 % (12.0-15.0); WHITE BLOOD COUNT 7.8 x10^3/uL (4.8-10.8)
[2021-12-05] MEDS ORDERED: AMOXICILLIN 250 MG CAPSULE PO STA (09:39)
[2021-12-05] MEDS ORDERED: ACETAMINOPHEN 325 MG TABLET PO STA (09:39)
[2021-12-05 09:55] LABS: ALBUMIN 3.7 g/dL (3.2-5.5); ALBUMIN/GLOBULIN RATIO 1.2 (1.0-2.2); ALKALINE PHOSPHATASE 60 IU/L (42-121); ALT ALANINE AMINOTRANSFERASE 40 IU/L (10-60); AST ASPARTATE AMINOTRANSFERASE 26 IU/L (10-42); BILIRUBIN,TOTAL 1.6 mg/dL (0.2-1.0); BUN - BLOOD UREA NITROGEN 17 mg/dL (6-20); CARBON DIOXIDE - CO2 22 mmol/L (21-32); CHLORIDE 94 mmol/L (101-111); CREATININE 1.1 mg/dL (0.6-1.2); GFR - MDRD 68 (>89); LIPASE 38 U/L (22-51); MAGNESIUM 1.9 mg/dL (1.7-2.8); POTASSIUM 4.5 mmol/L (3.5-5.0); SODIUM 129 mmol/L (135-145); TOTAL PROTEIN 6.8 g/dL (6.7-8.2)
[2021-12-05 09:56] LABS: CRP - C-REACTIVE PROTEIN < 1.0 mg/dL (0-1.0); GLUCOSE 601 mg/dL (70-100)
[2021-12-05] MEDS ORDERED: SODIUM CHLORIDE 0.9% 1,000 ML IV STA (09:57)
[2021-12-05 10:19] LABS: VBG BASE EXCESS 0.8 mmol/L (-2 - +2); VBG HCO3 26.6 mmol/L (23-28); VBG PCO2 46.1 mmHg (41-51); VBG PH 7.379 (7.31-7.41); VBG PO2 21.2 mmHg (25-47)
[2021-12-05 11:01] LABS: ESTIMATED AVERAGE GLUCOSE 367 mg/dL (70-100); HEMOGLOBIN A1c% 14.4 % (4.27-6.07)
[2021-12-05] MEDS ORDERED: metFORMIN 500 MG TABLET PO STA (11:24)
[2021-12-05] MEDS ORDERED: INSULIN REGULAR HUMAN 100 UNIT/1 ML 10 ML MDV IVP STA (11:24)
== END 2021-12-05 11:44 | disposition left against medical advice (07) ==
LOC: ED 08:19
DX: R53.1 Weakness (principal); J01.90 Acute sinusitis, unspecified; E11.9 Type 2 diabetes mellitus without complications; Z87.891 Personal history of nicotine dependence
CPT/HCPCS: 36415; 80053; 82009; 82803; 83036; 83690; 83735; 84443; 85025; 86140; 99283; A9270

== ENCOUNTER 2022-05-23 17:55 | Emergency (ER) | payer MEDICAID ==
[2022-05-23 18:06] VITALS: BP 140/90
--- NOTE | 2022-05-23 19:16 | ED Physician Documentation ---
PD HPI BACK PAIN - Stated complaint Stated Complaint: BACK PX - Chief complaint Chief Complaint: Back Pain - History obtained from History obtained from: Patient - Additional information Additional information: 61-year-old gentleman was working under his car about 2 weeks ago. He was down there for a long time replacing the gas tank. When he came out he had a short left shoulder, but that is progressed to back pain between the shoulder blades. It is much worse if he reaches forward or pulls back or changes position. If he is just sitting or laying straight the pain is minimal but any movement is severe. He denies shortness of breath or chest pain. Review of Systems Constitutional: denies: Fever, Chills Throat: denies: Dental pain / toothache, Sore throat Cardiac: denies: Chest pain / pressure, Palpitations Respiratory: denies: Dyspnea, Cough PD PAST MEDICAL HISTORY - Past Medical History Cardiovascular: Murmur, Valve disorder Respiratory: None Neuro: None Endocrine/Autoimmune: None (states history of borderline diabetes. ) GI: None : None HEENT: None Musculoskeletal: Chronic back pain Derm: None - Past Surgical History Past Surgical History: No Ortho: Carpal Tunnel surgery Cardiovascular: Valve replacement - Present Medications Home Medications: Ambulatory Orders Medication Instructions Recorded Confirmed Amoxicillin 500 mg PO TID #21 cap 12/05/21 metFORMIN [Glucophage] 500 mg PO BIDWM 30 Days #60 tablet 12/05/21 - Allergies Allergies/Adverse Reactions: Allergies Allergy/AdvReac Type Severity Reaction Status Date / Time No Known Drug Allergies Allergy Verified 05/23/22 18:06 - Social History Does the pt smoke?: No Smoking Status: Former smoker Does the pt drink ETOH?: Yes Does the pt have substance abuse?: Yes - Immunizations Immunizations are current?: Yes - POLST Patient has POLST: No PD ED PE NORMAL - Vitals Vital signs reviewed: Yes - General General: Alert and oriented X 3, No acute distress - HEENT HEENT: PERRL, EOMI - Neck Neck: Supple, no meningeal sign, No bony TTP - Cardiac Cardiac: RRR, No murmur - Respiratory Respiratory: No respiratory distress, Clear bilaterally - Abdomen Abdomen: Non tender - Extremities Extremities: No edema, No calf tenderness / cord - Neuro Neuro: Alert and oriented X 3, Normal speech Results - Vitals Vitals: Vital Signs - 24 hr 05/23/22 17:59 Temperature 36.2 C L Heart Rate 107 H Respiratory 20 Rate Blood Pressure 140/90 H O2 Saturation 98 Oxygen O2 Source Room air PD Medical Decision Making - ED course ED course: 61-year-old gentleman presents with back pain that is likely musculoskeletal. Given his age I recommended x-rays and we are awaiting x-rays when he left the department. Departure - Departure Disposition: ED Elope Clinical Impression: Back pain Qualifiers: Back pain location: thoracic back pain Chronicity: acute Back pain laterality: bilateral Qualified Code(s): M54.6 - Pain in thoracic spine Condition: Stable Discharge Date/Time: 05/23/22 21:08
[2022-05-23] MEDS ORDERED: CYCLOBENZAPRINE 10 MG Prepack 2 PO PRN (21:02)
== END 2022-05-23 21:08 | disposition left against medical advice (07) ==
LOC: ED 17:55
DX: M54.6 Pain in thoracic spine (principal); Z87.891 Personal history of nicotine dependence
CPT/HCPCS: 99281; 99282

== ENCOUNTER 2022-05-28 11:08 | Outpatient (CLI) | payer MEDICAID ==
--- NOTE | 2022-05-28 21:06 | XRAY Report ---
PROCEDURE: Cervical Spine 2 View INDICATIONS: PAIN IN RIGHT LOW LIMB TECHNIQUE: 2 view(s) of the cervical spine were acquired. COMPARISON: MRI cervical spine 07/29/2013, x-ray thoracic spine 05/28/2022 FINDINGS: Bones: No fractures or dislocations to the C5 level. The lateral masses of C1 appear intact on the odontoid view. No suspicious bony lesions. Significant disc space narrowing is present at C3-4 as w ell as C5-6. Bridging anterior osteophytes are present at C3-4. Multilevel uncovertebral osteophytes are present. Soft tissues: No prevertebral soft tissue swelling. IMPRESSION: Multilevel degenerative changes. Lower cervical spine is not well evaluated on current e xam. If there is area remains of concern, recommend repeat imaging. It is noted that the lower cervic al spine is poorly visualized on lateral thoracic spine x-ray. Reviewed by: Tania Childress MD on 05/28/2022 9:05 PM PST Approved by: Tania Childress MD on 05/28/2022 9:05 PM PST Station ID: [id number]
--- NOTE | 2022-05-28 21:07 | XRAY Report ---
PROCEDURE: Thoracic Spine 3 View INDICATIONS: PAIN IN RIGHT LOW LIMB TECHNIQUE: 3 views of the thoracic spine were acquired. COMPARISON: X-ray cervical spine 05/28/2022 FINDINGS: Bones: No fractures or dislocations. No suspicious bony lesions. 12 pairs of ribs are noted, and a ppear intact where visualized. Sternal wires are present. Multilevel degenerative disc space narrowi ng. Scattered areas of anterior osteophyte are present. Soft tissues: No paravertebral stripe thickening. IMPRESSION: Multilevel degenerative disc space narrowing. Reviewed by: Tania Childress MD on 05/28/2022 9:05 PM PST Approved by: Tania Childress MD on 05/28/2022 9:05 PM PST Station ID: [id number]
--- NOTE | 2022-05-28 21:07 | XRAY Report ---
PROCEDURE: Chest 1 View X-Ray INDICATIONS: PAIN IN RIGHT LOW LIMB TECHNIQUE: One view of the chest was acquired. COMPARISON: Chest x-ray 07/29/2013, 03/28/2019 FINDINGS: Surgical changes and devices: Sternal wires. Lungs and pleura: No pleural effusions or pneumothorax. Lungs are clear. Mediastinum: Mediastinal contours appear normal. Heart size is normal. Bones and chest wall: No suspicious bony lesions. Overlying soft tissues appear unremarkable. IMPRESSION: No acute pulmonary process. Reviewed by: Tania Childress MD on 05/28/2022 9:06 PM PST Approved by: Tania Childress MD on 05/28/2022 9:06 PM [facility] Station ID: [id number]
== END 2022-05-28 11:09 | disposition home or self-care (01) ==
LOC: DI 11:08
PROVIDERS: ATTEND Nurse Practitioner
DX: M47.812 Spondylosis without myelopathy or radiculopathy, cervical region (principal); M47.814 Spondylosis without myelopathy or radiculopathy, thoracic region

== ENCOUNTER 2022-09-10 07:37 | Emergency (ER) | payer MEDICAID ==
[2022-09-10 08:16] LABS: BASOPHILS # (AUTO) 0.1 10^3/uL (0.0-0.1); BASOPHILS % (AUTO) 1.6 %; EOSINOPHILS # (AUTO) 0.3 10^3/uL (0.0-0.7); EOSINOPHILS % (AUTO) 4.4 %; HGB - HEMOGLOBIN 16.4 g/dL (14.0-18.0); LYMPHOCYTES # (AUTO) 1.7 10^3/uL (1.5-3.5); LYMPHOCYTES % (AUTO) 23.8 %; MEAN CORPUSCULAR HEMOGLOBIN 30.7 pg (27.0-31.0); MEAN CORPUSCULAR HGB CONC 34.9 g/dL (32.0-36.0); MEAN PLATELET VOLUME 9.1 fL (7.4-11.4); MONOCYTES # (AUTO) 0.7 10^3/uL (0.0-1.0); MONOCYTES % (AUTO) 10.6 %; NEUTROPHILS # (AUTO) 4.1 10^3/uL (1.5-6.6); NEUTROPHILS % (AUTO) 59.5 %; PLT - PLATELET COUNT 267 10^3/uL (130-450); RED BLOOD COUNT 5.34 10^6/uL (4.70-6.10); RED CELL DISTRIBUTION WIDTH 11.9 % (12.0-15.0)
--- NOTE | 2022-09-10 08:20 | XRAY Report ---
PROCEDURE: Chest 1 View X-Ray INDICATIONS: Chest pain TECHNIQUE: One view of the chest was acquired. COMPARISON: 05/28/2022. FINDINGS: Surgical changes and devices: None. Lungs and pleura: No pleural effusions or pneumothorax. Lungs are clear. Mediastinum: Mediastinal contours appear normal. Heart size is normal. Bones and chest wall: No suspicious bony lesions. Overlying soft tissues appear unremarkable. IMPRESSION: No acute cardiopulmonary process. Reviewed by: Ben Waldron MD on 09/10/2022 8:18 AM PDT Approved by: Ben Waldron MD on 09/10/2022 8:18 AM PDT Station ID: [id number]
[2022-09-10 08:22] LABS: ALBUMIN 3.9 g/dL (3.2-5.5); ALBUMIN/GLOBULIN RATIO 1.2 (1.0-2.2); BILIRUBIN,TOTAL 1.1 mg/dL (0.2-1.0); CREATININE 0.9 mg/dL (0.6-1.2); POTASSIUM 3.8 mmol/L (3.5-5.0); TOTAL PROTEIN 7.2 g/dL (6.7-8.2)
--- NOTE | 2022-09-10 08:42 | ED Physician Documentation ---
PD HPI CHEST PAIN - Stated complaint Stated Complaint: Chest pain - Chief complaint Chief Complaint: Cardiac - History obtained from History obtained from: Patient - Additional information Additional information: The patient comes to the emergency department chief complaint of episodic chest pain. He states this started a few days ago when he was mowing the lawn. He smelled a certain plants smell that came up and it caused him to feel short of breath and have some pain in his chest. He states he has noticed this smell when he mows the lawn before, even in past years, and the smell always makes him feel short of breath. He thinks he may be allergic to what ever plant he is running over. However, he usually does not get chest pain and he noticed substernal pain/pressure at that time. The patient states that once he stopped mowing the lawn and got away from the smells, the symptoms calm down and were completely gone the next morning. The patient states that he was working in his yard over the next several days and whenever he would smell at smell, he would get the same symptoms. He did not notice the symptoms any other time. However, this morning, he woke up feeling fine was getting ready for the day when he suddenly began to have the same pain and shortness of breath. This time, there is no plant smell and just seem to come out of the blue. The patient states that he was not exerting himself at the time. The symptoms resolved on their own and he is currently asymptomatic. The patient states that outside of the plant smell, he has not noticed any chest pain or shortness of breath at any other time, including when he is exerting himself around his property. He has no known history of coronary artery disease. 4 years ago, he had an aortic valve replacement and he states at that time, he was evaluated for possible coronary artery disease and was told he was clear. He does note that all of his life, he has worked 10 to 14 hours a day, 7 days a week, and that is just what he likes to do. However, last summer he began to notice that he was becoming increasingly fatigued. He felt worse and worse until he sometimes cannot come in to work at all. He was ultimately fired from his job and he states that after that, he mostly laid in bed for 3 months. The patient states that after that, the fatigue finally began to improve and he was able to slowly get back into normal life. However, the patient states that he has never regained his prior level of energy and stamina. He states he can work about 8 hours and then he gets very tired. He has had to retire, though he does not want to. He does not currently have a primary doctor so he has been seen in various acute care settings but labs and other work-up are always negative. He does not know what is wrong with him. He does not see a independent distributor any longer. [place] to establish a relationship with any of them. The patient is a smoker. He normally does not have any shortness of breath and states that he has no history of COPD. No current complaints. No fevers or chills. No nausea or vomiting. No diaphoresis with the episodes. PD PAST MEDICAL HISTORY - Past Medical History Cardiovascular: Murmur, Valve disorder Respiratory: None Neuro: None Endocrine/Autoimmune: None (states history of borderline diabetes. ) GI: None : None HEENT: None Musculoskeletal: Chronic back pain Derm: None - Past Surgical History Past Surgical History: No Ortho: Carpal Tunnel surgery Cardiovascular: Valve replacement - Present Medications Home Medications: Ambulatory Orders Medication Instructions Recorded Confirmed Amoxicillin 500 mg PO TID #21 cap 12/05/21 metFORMIN [Glucophage] 500 mg PO BIDWM 30 Days #60 tablet 12/05/21 Amoxicillin 500 mg PO TID 7 Days #21 cap 09/10/22 Aspirin EC [Ecotrin] 325 mg PO DAILY #60 tablet 09/10/22 Atorvastatin [Lipitor] 10 mg PO DAILY #60 tablet 09/10/22 Clopidogrel [Plavix] 75 mg PO DAILY #60 tablet 09/10/22 Metoprolol Tartrate [Lopressor] 25 mg PO DAILY #60 tablet 09/10/22 - Allergies Allergies/Adverse Reactions: Allergies Allergy/AdvReac Type Severity Reaction Status Date / Time No Known Drug Allergies Allergy Verified 05/23/22 18:06 - Social History Does the pt smoke?: No Smoking Status: Former smoker Does the pt drink ETOH?: Yes Does the pt have substance abuse?: Yes - Immunizations Immunizations are current?: Yes - POLST Patient has POLST: No PD ED PE NORMAL - Vitals Vital signs reviewed: Yes - General General: Alert and oriented X 3, No acute distress, Well developed/nourished - HEENT HEENT: Atraumatic, PERRL, EOMI, Moist mucous membranes - Neck Neck: Supple, no meningeal sign - Cardiac Cardiac: RRR, No murmur, Strong equal pulses, Other ("Clicking" sound, consistent with prosthetic aortic valve.) - Respiratory Respiratory: No respiratory distress, Clear bilaterally - Abdomen Abdomen: Soft, Non tender, Non distended - Derm Derm: Normal color, Warm and dry, No rash - Extremities Extremities: No deformity, No edema - Neuro Neuro: Alert and oriented X 3, Other (Grossly intact) - Psych Psych: Normal mood, Normal affect Results - Vitals Vitals: Vital Signs - 24 hr 09/10/22 09/10/22 09/10/22 07:56 08:14 08:38 Temperature 36.7 C Heart Rate 106 H 114 H 108 H Respiratory 20 18 18 Rate Blood Pressure 123/87 H 136/84 H 133/88 H O2 Saturation 99 100 100 09/10/22 09/10/22 09:00 10:01 Temperature Heart Rate 99 87 Respiratory 25 H 16 Rate Blood Pressure 107/71 151/97 H O2 Saturation 99 100 Oxygen O2 Source Room air - EKG (time done) 0751 EKG releavant findings:: EKG personally interpreted by author of this note. Relevant findings are: Rate: Rate (enter#) (107) Rhythm: Sinus tachycardia, LAE [place]: Normal Intervals: Normal DC, RBBB (Intraventricular conduction delay) QRS: Normal Ischemia: ST depression (Inferiorly) - Labs Labs: Laboratory Tests 09/10/22 09/10/22 09/10/22 07:57 07:57 07:57 WBC 7.0 RBC 5.34 Hgb 16.4 Hct 47.0 MCV 88.0 MCH 30.7 MCHC 34.9 RDW 11.9 L Plt Count 267 MPV 9.1 Neut # (Auto) 4.1 Lymph # (Auto) 1.7 Lane # (Auto) 0.7 Eos # (Auto) 0.3 Baso # (Auto) 0.1 Absolute Nucleated RBC 0.00 Nucleated RBC % 0.0 D-Dimer Sodium 139 Potassium 3.8 Chloride 100 L Carbon Dioxide 28 Anion Gap 11.0 BUN 15 Creatinine 0.9 Estimated GFR (MDRD) 85 L Glucose 200 H Calcium 9.0 Total Bilirubin 1.1 H AST 39 ALT 32 Alkaline Phosphatase 52 Troponin I High Sens 1306.9 H* Total Protein 7.2 Albumin 3.9 Globulin 3.3 Albumin/Globulin Ratio 1.2 Lipase 34 TSH 09/10/22 09/10/22 09/10/22 07:57 07:57 09:48 WBC RBC Hgb Hct MCV MCH MCHC RDW Plt Count MPV Neut # (Auto) Lymph # (Auto) Lane # (Auto) Eos # (Auto) Baso # (Auto) Absolute Nucleated RBC Nucleated RBC % D-Dimer < 200.0 L Sodium Potassium Chloride Carbon Dioxide Anion Gap BUN Creatinine Estimated GFR (MDRD) Glucose Calcium Total Bilirubin AST ALT Alkaline Phosphatase Troponin I High Sens 1246.2 H* Total Protein Albumin Globulin Albumin/Globulin Ratio Lipase TSH 3.47 - Rads (name of study) CXR Relevant Findings:: Final report received, See rad report (No acute CPPP) PD Medical Decision Making - ED course Complexity details: reviewed old records, reviewed results, re-evaluated patient, considered differential, d/w patient ED course: The patient was without complaints and overall appeared well in the emergency department. He was mildly tachycardic which I did mention to him and he stated that this is normal for him. He takes his own vitals at home and no matter what the circumstances, he is always a little over 100. He states he has been told this by other doctors that nobody has ever been able to find anything wrong with him. He was worked up with EKG, labs, and chest x-ray. The work-up was reviewed by me, with CBC and ER abd panel unremarkable. EKG showed no STEMI and chest XR was unremarkable. Troponin was elevated at 1300. I spoke with the pt and advised him that he had had an WI, and would need transfer to a facility with a independent distributor. The pt adamantly declined, despite a discussion of the benefits of doing so. He stated he would rather go home and come back if the sx happen again. We have discussed that the pt could have permanent, severe cardiac damage or , but the pt does not wish to stay. He agrees to take metoprolol, ASA, and Plavix, and states he will take the meds at home, as well, but would like to sign out AMA. He is advised that he may return at any time, should he change his mind. Departure - Departure Disposition: 07 Against Medical Advice Clinical Impression: NSTEMI (non-ST elevated myocardial infarction) Condition: Serious Instructions: Heart Attack Dc Prescriptions: Amoxicillin 500 mg PO TID 7 Days #21 cap Aspirin EC [Ecotrin] 325 mg PO DAILY #60 tablet Atorvastatin [Lipitor] 10 mg PO DAILY #60 tablet Metoprolol Tartrate [Lopressor] 25 mg PO DAILY #60 tablet Clopidogrel [Plavix] 75 mg PO DAILY #60 tablet Comments: Your labs show very high levels of cardiac muscle breakdown products in your blood, which is indicative of a heart attack. Most likely, you have developed some blockages in your coronary arteries over time and this has caused your heart attack today. It is very important that you get your heart taken care of in a timely manner which is why we have recommended being transferred to a facility with a independent distributor. However, you have declined to stay in the hospital at this time. In light of this, I will start you on medications, but it is extremely important that you follow-up in primary care for referral to cardiology. We will have you follow-up with Dr. Xander Yan or Dr. Rios. If you change your mind about inpatient care, please return to the emergency department immediately. I have written prescriptions for all the medications you will need for your heart plus the antibiotic. The prescriptions have been electronically transmitted to the [facility] here in [place] at your request. Please pick them up today. We have given you first doses the medications here in the emergency department. Discharge Date/Time: 09/10/22 10:12
[2022-09-10] MEDS ORDERED: ASPIRIN CHEW 81 MG TABLET PO STA (09:45)
[2022-09-10] MEDS ORDERED: METOPROLOL SUCCINATE 50 MG TABLET PO STA (09:45)
[2022-09-10] MEDS ORDERED: SODIUM CHLORIDE 0.9% 1,000 ML IV STA (09:45)
[2022-09-10] MEDS ORDERED: CLOPIDOGREL 300 MG TABLET PO STA (09:46)
[2022-09-10] MEDS ORDERED: HEPARIN 25000UNITS/500ML (D5W) 25,000 UNIT/500 ML BAG IV SCH (10:00)
[2022-09-10 10:03] VITALS: BP 151/97
== END 2022-09-10 10:12 | disposition left against medical advice (07) ==
LOC: ED 07:37
DX: I21.4 Non-ST elevation (NSTEMI) myocardial infarction (principal); F17.200 Nicotine dependence, unspecified, uncomplicated
CPT/HCPCS: 36415; 71045; 80053; 83690; 84443; 84484; 85025; 85379; 93005; 99284; A9270

== ENCOUNTER 2024-01-24 13:10 | Emergency (ER) | payer MEDICAID ==
--- NOTE | 2024-01-24 13:27 | ED Physician Documentation ---
History of Present Illness - Stated complaint Stated Complaint: R TOE INJURY, MALAISE - Chief complaint Chief Complaint: General - Additonal information Additional information: 63-year-old male with history of poorly controlled type 2 diabetes he was diagnosed about a year ago presents emergency department for generalized malaise and right third toe pain. Patient says that he just recently lost his insurance and so he has not been taking his insulin as prescribed because he is trying to make it last longer. Over the last several weeks patient's been feeling more and more ill to the point where he is having a hard time working and feeling increased shortness of breath walking short distances. He also reports that he could sleep all day long and still feel unrested. Denies any tobacco use he says that he does drink some alcohol over the last 3 days he says he had about 6 mikes hard alcohol drinks. Denies any illicit drug use no history of cancer no recent long travel last smoked about 20 years ago. He is unsure if he is any fevers or chills he does report some shortness of breath with walking short distances but denies chest pain. PD PAST MEDICAL HISTORY - Past Medical History Cardiovascular: Murmur, Valve disorder Respiratory: None Neuro: None Endocrine/Autoimmune: None GI: None : None HEENT: None Musculoskeletal: Chronic back pain Derm: None - Past Surgical History Past Surgical History: No Ortho: Carpal Tunnel surgery Cardiovascular: Valve replacement - Present Medications Home Medications: Ambulatory Orders Medication Instructions Recorded Confirmed Amoxicillin 500 mg PO TID #21 cap 12/05/21 metFORMIN [Glucophage] 500 mg PO BIDWM 30 Days #60 tablet 12/05/21 Amoxicillin 500 mg PO TID 7 Days #21 cap 09/10/22 Aspirin EC [Ecotrin] 325 mg PO DAILY #60 tablet 09/10/22 Atorvastatin [Lipitor] 10 mg PO DAILY #60 tablet 09/10/22 Clopidogrel [Plavix] 75 mg PO DAILY #60 tablet 09/10/22 Metoprolol Tartrate [Lopressor] 25 mg PO DAILY #60 tablet 09/10/22 cephALEXin [Keflex] 500 mg PO Q6H 7 Days #28 cap 01/24/24 - Allergies Allergies/Adverse Reactions: Allergies Allergy/AdvReac Type Severity Reaction Status Date / Time No Known Drug Allergies Allergy Verified 01/24/24 13:18 - Social History Does the pt smoke?: No Smoking Status: Former smoker Does the pt drink ETOH?: Yes Does the pt have substance abuse?: Yes Substance Use and Type: Marijuana - Immunizations Immunizations are current?: Yes - POLST Patient has POLST: No Results - Vitals Vitals: Vital Signs - 24 hr 01/24/24 01/24/24 01/24/24 13:18 13:52 14:22 Temperature 37.2 C 36.4 C L 36.7 C Heart Rate 125 H 115 H 116 H Respiratory 23 18 Rate Blood Pressure 138/97 H 144/104 H 140/98 H O2 Saturation 96 96 94 01/24/24 01/24/24 01/24/24 14:52 14:56 15:30 Temperature 36.1 C L 36.3 C L Heart Rate 109 H 104 H 96 Respiratory 20 21 14 Rate Blood Pressure 119/67 140/98 H 125/97 H O2 Saturation 94 94 95 Oxygen O2 Source Room air - EKG (time done) 1400 EKG releavant findings:: EKG personally interpreted by author of this note. Relevant findings are: Rate: Rate (enter#) (107) Rhythm: Other (sinus tachycardia) [place]: RAD Intervals: Prolonged AR QRS: Normal Ischemia: Other (non specific repoloization ) Computer interpretation: Agree with computer - Labs Labs: Laboratory Tests 01/24/24 01/24/24 01/24/24 13:15 13:35 13:35 WBC 7.6 RBC 5.90 Hgb 17.2 Hct 48.3 MCV 81.9 MCH 29.2 MCHC 35.6 RDW 11.7 L Plt Count 268 MPV 9.3 Neut # (Auto) 4.4 Lymph # (Auto) 2.2 [place] # (Auto) 0.6 Eos # (Auto) 0.3 Baso # (Auto) 0.1 Absolute Nucleated RBC 0.00 Nucleated RBC % 0.0 VBG pH VBG pCO2 VBG pO2 VBG HCO3 VBG Total CO2 VBG O2 Saturation VBG Base Excess Sodium 132 L Potassium 3.8 Chloride 100 L Carbon Dioxide 21 Anion Gap 11.0 BUN 20 Creatinine 0.9 Estimated GFR (MDRD) 85 L Glucose 473 H POC Whole Bld Glucose 430 H Lactic Acid Calcium 9.4 Magnesium 1.6 L Total Bilirubin 1.3 H AST 13 ALT 19 Alkaline Phosphatase 68 Total Protein 6.8 Albumin 3.8 Globulin 3.0 Albumin/Globulin Ratio 1.3 Lipase 25 Urine Color Urine Clarity Urine pH Ur Specific [place] Urine Protein Urine Glucose (UA) Urine Ketones Urine Occult Blood Urine Nitrite Urine Bilirubin Urine Urobilinogen Ur Leukocyte Esterase Ur Microscopic Review Urine Culture Comments Nasal Adenovirus (PCR) Nasal B. parapertussis DNA (PCR) Nasal Coronavir 229E PCR Nasal Coronavir HKU1 PCR Nasal Coronavir NL63 PCR Nasal Coronavir OC43 PCR Nasal Enterovir/Rhinovir PCR Nasal Influenza B PCR Nasal Influenza A PCR Nasal Parainfluen 1 PCR Nasal Parainfluen 2 PCR Nasal Parainfluen 3 PCR Nasal Parainfluen 4 PCR Nasal RSV (PCR) Nasal B.pertussis DNA PCR Nasal C.pneumoniae (PCR) Raza Human Metapneumo PCR Nasal M.pneumoniae (PCR) Nasal SARS-CoV-2 (PCR) Ethyl Alcohol < 10.0 Serum Ketones NEGATIVE 01/24/24 01/24/24 01/24/24 13:42 13:43 14:25 WBC RBC Hgb Hct MCV MCH MCHC RDW Plt Count MPV Neut # (Auto) Lymph # (Auto) [place] # (Auto) Eos # (Auto) Baso # (Auto) Absolute Nucleated RBC Nucleated RBC % VBG pH 7.445 H VBG pCO2 31.8 L VBG pO2 57.8 H VBG HCO3 21.4 L VBG Total CO2 22.3 L VBG O2 Saturation 92.0 H VBG Base Excess -1.4 Sodium Potassium Chloride Carbon Dioxide Anion Gap BUN Creatinine Estimated GFR (MDRD) Glucose POC Whole Bld Glucose Lactic Acid 2.3 H Calcium Magnesium Total Bilirubin AST ALT Alkaline Phosphatase Total Protein Albumin Globulin Albumin/Globulin Ratio Lipase Urine Color Urine Clarity Urine pH Ur Specific [place] Urine Protein Urine Glucose (UA) Urine Ketones Urine Occult Blood Urine Nitrite Urine Bilirubin Urine Urobilinogen Ur Leukocyte Esterase Ur Microscopic Review Urine Culture Comments Nasal Adenovirus (PCR) NOT DETECTED Nasal B. parapertussis DNA (PCR) NOT DETECTED Nasal Coronavir 229E PCR NOT DETECTED Nasal Coronavir HKU1 PCR NOT DETECTED Nasal Coronavir NL63 PCR NOT DETECTED Nasal Coronavir OC43 PCR NOT DETECTED Nasal Enterovir/Rhinovir PCR NOT DETECTED Nasal Influenza B PCR NOT DETECTED Nasal Influenza A PCR NOT DETECTED Nasal Parainfluen 1 PCR NOT DETECTED Nasal Parainfluen 2 PCR NOT DETECTED Nasal Parainfluen 3 PCR NOT DETECTED Nasal Parainfluen 4 PCR NOT DETECTED Nasal RSV (PCR) NOT DETECTED Nasal B.pertussis DNA PCR NOT DETECTED Nasal C.pneumoniae (PCR) NOT DETECTED Raza Human Metapneumo PCR NOT DETECTED Nasal M.pneumoniae (PCR) NOT DETECTED Nasal SARS-CoV-2 (PCR) NOT DETECTED Ethyl Alcohol Serum Ketones 01/24/24 15:00 WBC RBC Hgb Hct MCV MCH MCHC RDW Plt Count MPV Neut # (Auto) Lymph # (Auto) [place] # (Auto) Eos # (Auto) Baso # (Auto) Absolute Nucleated RBC Nucleated RBC % VBG pH VBG pCO2 VBG pO2 VBG HCO3 VBG Total CO2 VBG O2 Saturation VBG Base Excess Sodium Potassium Chloride Carbon Dioxide Anion Gap BUN Creatinine Estimated GFR (MDRD) Glucose POC Whole Bld Glucose Lactic Acid Calcium Magnesium Total Bilirubin AST ALT Alkaline Phosphatase Total Protein Albumin Globulin Albumin/Globulin Ratio Lipase Urine Color YELLOW Urine Clarity CLEAR Urine pH 5.5 Ur Specific [place] 1.015 Urine Protein NEGATIVE Urine Glucose (UA) >=1000 H Urine Ketones NEGATIVE Urine Occult Blood NEGATIVE Urine Nitrite NEGATIVE Urine Bilirubin NEGATIVE Urine Urobilinogen 0.2 (NORMAL) Ur Leukocyte Esterase NEGATIVE Ur Microscopic Review NOT INDICATED Urine Culture Comments NOT INDICATED Nasal Adenovirus (PCR) Nasal B. parapertussis DNA (PCR) Nasal Coronavir 229E PCR Nasal Coronavir HKU1 PCR Nasal Coronavir NL63 PCR Nasal Coronavir OC43 PCR Nasal Enterovir/Rhinovir PCR Nasal Influenza B PCR Nasal Influenza A PCR Nasal Parainfluen 1 PCR Nasal Parainfluen 2 PCR Nasal Parainfluen 3 PCR Nasal Parainfluen 4 PCR Nasal RSV (PCR) Nasal B.pertussis DNA PCR Nasal C.pneumoniae (PCR) Raza Human Metapneumo PCR Nasal M.pneumoniae (PCR) Nasal SARS-CoV-2 (PCR) Ethyl Alcohol Serum Ketones - Rads (name of study) Chest x-ray Relevant Findings:: Final report received, EMP independent interpretation of test, Other (No acute cardiopulmonary process) PD Medical Decision Making - ED course ED course: 63-year-old male presents emergency department for generalized malaise and ill feeling And right third toe pain. He was tachycardic upon arrival to the emergency department no hypoxia I did consider possible Pulmonary embolism, well score low risk for PE so I did not pursue a CT chest angio. Chest x-ray was complete for further evaluation no acute cardiopulmonary abnormality was visualized. CBC does not show any acute abnormalities or findings, chemistry panel does show significant hyperglycemia, blood sugar 473 upon initial arrival to the ER lactic acid was slightly elevated at 2.3, overall normal kidney function urinalysis is unremarkable negative respiratory panel negative alcohol panel negative ketones. For patient's blood sugar he received 10 units of IV regular insulin as well as 1 L of IV fluids and patient reports significant improvement of his symptoms and says that for the first time he starting to feel like he has energy back again. He does not appear to be in DKA or HHS. He was monitored here for couple hours and remained stable throughout entire ER visit. In regards to patient's third toe pain on the right foot there is some mild erythema given that he has neuropathy and poorly controlled type 2 diabetes I went ahead and started him on Keflex. He was also told to follow-up with podiatry outpatient for further evaluation. It was stressed to the patient that he needs to be more diligent with managing his type 2 diabetes and insulin and to make some diet and exercise changes and to stay away from any alcoholic beverages as this is going to make his type 2 diabetes worse and he was very agreeable and open to the idea of working on this. At this point in time I believe that patient is safe for discharge strict ER return precautions given and patient most likely feeling the way that he is feeling due to poorly controlled type 2 diabetes I do not believe that he has any clinical signs or symptoms of sepsis and is safe for discharge at this time. Departure - Departure Disposition: 01 Home, Self Care Clinical Impression: Cellulitis of toe of left foot, Hyperglycemia, Poorly controlled type 2 diabetes mellitus, Neuropathy, Dehydration Instructions: Cellulitis Dc Prescriptions: cephALEXin [Keflex] 500 mg PO Q6H 7 Days #28 cap Comments: Thank you for trusting us with your care, we have evaluated you for right toe redness and fatigue. It appears that your blood sugars are quite elevated. We have given you a liter of IV fluid as well as 10 units of regular insulin and you are reporting significant improvement of symptoms. Going home and waited to some more research with how to manage her type 2 diabetes with diet and exercise. Please help with your primary care provider about a possible nutrition referral for further evaluation education about how to manage her type 2 diabetes. We are going to go ahead and start you on antibiotics for your right toe erythema I sent a prescription to your preferred pharmacy you took the first dose here in the emergency department please take as prescribed. Please come back to the ER for noticing any fevers or chills any worsening symptoms. Forms: PCP List Discharge Date/Time: 01/24/24 15:54
[2024-01-24] MEDS: SODIUM CHLORIDE 0.9% 1,000 ML IV ONE (13:42)
[2024-01-24 13:52] LABS: BASOPHILS # (AUTO) 0.1 10^3/uL (0.0-0.1); BASOPHILS % (AUTO) 1.6 %; EOSINOPHILS # (AUTO) 0.3 10^3/uL (0.0-0.7); EOSINOPHILS % (AUTO) 3.4 %; HCT - HEMATOCRIT 48.3 % (42.0-52.0); HGB - HEMOGLOBIN 17.2 g/dL (14.0-18.0); LYMPHOCYTES # (AUTO) 2.2 10^3/uL (1.5-3.5); LYMPHOCYTES % (AUTO) 29.1 %; MEAN CORPUSCULAR HEMOGLOBIN 29.2 pg (27.0-31.0); MEAN CORPUSCULAR HGB CONC 35.6 g/dL (32.0-36.0); MEAN CORPUSCULAR VOLUME 81.9 fL (80.0-94.0); MEAN PLATELET VOLUME 9.3 fL (7.4-11.4); MONOCYTES # (AUTO) 0.6 10^3/uL (0.0-1.0); MONOCYTES % (AUTO) 7.5 %; NEUTROPHILS # (AUTO) 4.4 10^3/uL (1.5-6.6); PLT - PLATELET COUNT 268 10^3/uL (130-450); RED CELL DISTRIBUTION WIDTH 11.7 % (12.0-15.0); WHITE BLOOD COUNT 7.6 x10^3/uL (4.8-10.8)
[2024-01-24 13:56] LABS: VBG PH 7.445 (7.31-7.41)
[2024-01-24 13:57] LABS: VBG BASE EXCESS -1.4 mmol/L (-2 - +2); VBG HCO3 21.4 mmol/L (23-28); VBG PCO2 31.8 mmHg (41-51); VBG PO2 57.8 mmHg (25-47); VBG TOTAL CO2 22.3 mmol/L (24-29)
[2024-01-24 14:03] LABS: KETONES, SERUM (ACETEST) NEGATIVE (NEGATIVE)
[2024-01-24 14:12] LABS: ALBUMIN 3.8 g/dL (3.2-5.5); ALBUMIN/GLOBULIN RATIO 1.3 (1.0-2.2); ALKALINE PHOSPHATASE 68 IU/L (42-121); ALT ALANINE AMINOTRANSFERASE 19 IU/L (10-60); AST ASPARTATE AMINOTRANSFERASE 13 IU/L (10-42); BILIRUBIN,TOTAL 1.3 mg/dL (0.2-1.0); BUN - BLOOD UREA NITROGEN 20 mg/dL (6-20); CALCIUM 9.4 mg/dL (8.5-10.3); CARBON DIOXIDE - CO2 21 mmol/L (21-32); CHLORIDE 100 mmol/L (101-111); CREATININE 0.9 mg/dL (0.6-1.3); ETOH - ETHANOL < 10.0 mg/dL; GFR - MDRD 85 (>89); GLUCOSE 473 mg/dL (74-104); LIPASE 25 U/L (11-82); MAGNESIUM 1.6 mg/dL (1.7-2.3); POTASSIUM 3.8 mmol/L (3.5-4.5); SODIUM 132 mmol/L (135-145); TOTAL PROTEIN 6.8 g/dL (6.4-8.9)
[2024-01-24] MEDS: INSULIN REGULAR, HUMAN 300 UNIT/3 ML PEN IVP STA (14:17)
--- NOTE | 2024-01-24 14:42 | XRAY Report ---
PROCEDURE: Chest 1V INDICATIONS: SOB TECHNIQUE: One view of the chest was acquired. COMPARISON: Chest radiograph on September 10, 2022. FINDINGS: Overlying EKG leads limit evaluation. Surgical changes and devices: Intact sternotomy wires. Lungs and pleura: No pleural effusions or pneumothorax. Lungs are clear. Mediastinum: Mediastinal contours appear normal. Heart size is normal. Bones and chest wall: No suspicious bony lesions. Overlying soft tissues appear unremarkable. IMPRESSION: No acute cardiopulmonary process. Reviewed by: Lynn Gore MD on 01/24/2024 1:41 PM [facility] Approved by: Lynn Gore MD on 01/24/2024 1:41 PM [facility] Station ID: [id number]
[2024-01-24 15:06] LABS: BILIRUBIN,URINE NEGATIVE (NEGATIVE); CLARITY,URINE CLEAR (CLEAR); GLUCOSE, URINE (UA) >=1000 mg/dL (NEGATIVE); KETONES,URINE (UA) NEGATIVE (NEGATIVE); LEUKOCYTE ESTERASE, URINE NEGATIVE (NEGATIVE); NITRITE,URINE NEGATIVE (NEGATIVE); OCCULT BLOOD,URINE NEGATIVE (NEGATIVE); PH,URINE 5.5 PH (5.0-7.5); PROTEIN,URINE NEGATIVE (NEGATIVE); UROBILINOGEN,URINE 0.2 (NORMAL) E.U./dL (NORMAL)
[2024-01-24] MEDS: MAGNESIUM OXIDE 400 MG TABLET PO STA (15:16)
[2024-01-24 15:44] LABS: B. PARAPERTUSSIS- RESP PCR PAN NOT DETECTED; B. PERTUSSIS- RESP PCR PANEL NOT DETECTED; C. PNEUMONIAE- RESP PCR PANEL NOT DETECTED; CORONAVIRUS 229E-RESP PCR NOT DETECTED; CORONAVIRUS HKU1-RESP PCR NOT DETECTED; CORONAVIRUS NL63-RESP PCR NOT DETECTED; CORONAVIRUS OC43-RESP PCR NOT DETECTED; HUMAN METAPNEUMOVIRUS NOT DETECTED; INFLUENZA A- RESP PCR PANEL NOT DETECTED; INFLUENZA B - RESP PCR PANEL NOT DETECTED; M. PNEUMONIAE- RESP PCR PANEL NOT DETECTED; PARAINFLUENZA VIRUS 1 NOT DETECTED; PARAINFLUENZA VIRUS 2 NOT DETECTED; PARAINFLUENZA VIRUS 3 NOT DETECTED; PARAINFLUENZA VIRUS 4 NOT DETECTED; RHINOVIRUS/ENTEROVIRUS NOT DETECTED; RSV- RESP PCR PANEL NOT DETECTED; SARS-CoV-2 -RESP PCR PANEL NOT DETECTED
[2024-01-24] MEDS: cephALEXin 250 MG CAPSULE PO STA (15:46)
[2024-01-24 15:49] VITALS: BP 125/97; O2SAT 95
== END 2024-01-24 15:54 | disposition home or self-care (01) ==
LOC: ED 13:10
DX: E11.65 Type 2 diabetes mellitus with hyperglycemia (principal); E11.40 Type 2 diabetes mellitus with diabetic neuropathy, unspecified; L03.031 Cellulitis of right toe; E86.0 Dehydration; T38.3X6A Underdosing of insulin and oral hypoglycemic [antidiabetic] drugs, initial encounter; Z91.128 Patient's intentional underdosing of medication regimen for other reason; Z87.891 Personal history of nicotine dependence; Z79.4 Long term (current) use of insulin
CPT/HCPCS: 36415; 71045; 80053; 81003; 82009; 82077; 82803; 83605; 83690; 83735; 85025; 87040; 87633; 93005; 96360; 99284; A9270; 81001; 87086